=== PATIENT | male | born 1975 | race Caucasian/White ===

== ENCOUNTER → 2021-04-27 11:18 | Outpatient (CLI) | payer BC, SELFPAY ==
--- NOTE | ~2021-04-27 | US_ITS ---
US soft tissue head and neck 04/27/2021 11:38 Indication: Swollen lymph node in the left neck Procedure: High-resolution ultrasound of the left neck soft tissues in the area of palpable concern Comparison: No prior studies for comparison. Findings: There is a normal lymph node in the area of palpable concern measuring 1.2 x 0.4 x 0.6 cm w ith normal fatty hilum. No other masses or fluid collections. Impression: 1: Normal lymph node of the left neck in the area of palpable concern. Reviewed, dictated and finalized at location B. ERATURE REGULATOR Impression: 1: Normal lymph node of the left neck in the area of palpable concern.
== END ==
PROVIDERS: PCP Student in an Organized Health Care Education/Training Program; Visit Provider Student in an Organized Health Care Education/Training Program
DX: R59.9 Enlarged lymph nodes, unspecified (principal)
CPT/HCPCS: 76536

== ENCOUNTER 2021-12-20 12:32 | Outpatient (CLI) | payer BC, SELFPAY ==
--- NOTE | ~2021-12-20 | CT_ITS ---
EXAMINATION: CT diagnostic chest wo con DATE: 12/20/2021 14:22 INDICATION: Chest pain, chest pressure, dyspnea. Smoker. History of bronchitis. TECHNIQUE: Computed tomography (CT) of the chest was performed without intravenous contrast. Automate d exposure control and iterative reconstruction technique were employed. Exam dose: 429.73 mGy-cm to kaushal exam DLP. COMPARISON: 07/12/2015 2 view chest FINDINGS: Heart size is normal. Left coronary artery calcifications. No pericardial or pleural effusi on. No thoracic aortic aneurysm No hilar or mediastinal mass lesion or lymphadenopathy. Mild bilateral apical scarring. No pulmonary infiltrate or consolidation or pulmonary mass lesion is detected. Normal morphology of the adrenal glands. Included upper abdominal structures are unremarkable. Bilateral gynecomastia. No suspicious osteolytic or osteoblastic lesions. IMPRESSION: Bilateral gynecomastia Reviewed, dictated and finalized at [facility]. Reviewed, dictated and finalized at location B. IMPRESSION: Bilateral gynecomastia
--- NOTE | 2021-12-20 16:07 | WPDPFTINT ---
PFT Procedure Performed PFT Procedure Performed Spirometry with Pre/Post Bronchodilator Plethysmography (Lung Vol) Diffusing Cap (DLCO) Flow Vol Loop PFT Interpretation This is a pulmonary function test with pre and post-bronchodilator spirometry, plethysmography and diffusing capacity. The test was performed and results interpreted in accordance with the 2019 and 2005 ATS/ERS Task Force guidelines respectively using the Global Lung Function Initiative-2012 reference equations. Patient demonstrated good effort and cooperation. Reproducibility criteria were met. The quality of the pre bronchodilator spirometry maneuver was Grade A and post bronchodilator spirometry maneuver was Grade A. Findings: Spirometry: The contour the inspiratory and expiratory flow tracing are normal. The pre bronchodilator FVC is 5.94 L, 93% predicted. The pre bronchodilator FEV1 is 4.31 L, 86% predicted. The pre bronchodilator FEV1: FVC ratio is 73%. The post bronchodilator FVC is 6.18 L, representing a 4% increase. The post bronchodilator FEV1 is 4.50 L, representing a 4% increase. The post bronchodilator FEV1: FVC ratio 73%. Plethysmography: The total lung capacity is 8.27 L, 98% predicted. Functional residual capacity is 3.41 L, 78% predicted. The residual volume is 2.33 L, 99% predicted. Diffusion capacity: The diffusing capacity unadjusted for hemoglobin and carboxyhemoglobin is 34.0, 99% predicted. The diffusing capacity adjusted for alveolar volume is 4.23, 100% predicted. Impression: The spirometry is normal without evidence of an obstructive abnormality. There is no significant improvement after inhaling a single dose of albuterol. The lung volumes are normal. The diffusing capacity is normal. There are no prior studies for comparison
== END 2021-12-20 12:33 | disposition home or self-care (01) ==
LOC: ANHPFT 12:33
PROVIDERS: Visit Provider Physician Assistant
DX: R06.00 Dyspnea, unspecified (principal); F17.200 Nicotine dependence, unspecified, uncomplicated; N62 Hypertrophy of breast
CPT/HCPCS: 71250; 94060; 94726; 94729

== ENCOUNTER 2022-01-25 07:20 | Outpatient (CLI) | payer BC, SELFPAY ==
--- NOTE | 2022-02-11 17:49 | WPDHOMESLEEP ---
Sleep Study - Home Unattended Date of Study: 01/25/22 Ordering Provider: KALEIGH Rojas Interpreting Provider: Maye Conte, DO Home Sleep Study Type: Watch PAT Height: 1.98 m Weight: 108.862 kg Body Mass Index: 27.7 Neck Circumference (inches): 18 [place]: 3 Reason for Sleep Study Snoring Sleep History The patient is a 46-year-old male with insomnia, GERD and tobacco use that had a sleep study ordered by the pulmonary group for evaluation of sleep apnea. The patient occasionally awakens from sleep short of breath. He rarely awakens at night with heartburn, belching or cough. He constantly snores loud enough that others complain. He denies having trouble sleeping when he has a cold. He occasionally wakes up gasping for air throughout the night. He occasionally has breathing problems at night observed by himself or others. He constantly sweats excessively at night. He occasionally has heart palpitations or irregular heartbeats during the night. He denies falling asleep during the day and while driving. He denies sleep paralysis and cataplexy. He denies having trouble at school or work due to sleepiness. He rarely experiences vivid dreamlike scenes upon awakening or falling asleep. He denies feeling afraid of going to sleep. He rarely has nightmares. He rarely remembers his dreams. He frequently has thoughts racing his mind he denies feeling sad or depressed he frequently has anxiety denies having muscular tension he denies noticing of his body jerk. He denies kicking during night. Denies having crawling and aching feelings in his legs as well as leg pain night. He frequently grinds his teeth during sleep awakens with a morning jaw pain. He denies being bothered by pain the and denies being awakened by pain wakes feeling stiff the morning he rarely wakes up with sore or achy muscles. He denies waking up with pain in the neck, spine or other joints. He goes to bed between 9-930 p.m. on both weekdays and weekends. He is able to fall asleep within 45 minutes if he takes his Ambien. He wakes up 2-3 times throughout the night for unknown reasons. He wakes up at 4:30 a.m. on both weekdays and weekends. He typically gets 4-5 hours of sleep per night. He currently lives with his fiancee. He does not consume any caffeinated beverages within 2 hours of bedtime. He does not engage in physical exercise before bedtime. He will watch television before falling asleep. He will occasionally take naps in the afternoon or the evening but they are not refreshing. He does consume caffeinated beverages throughout the day. He occasionally drinks alcohol. He currently smokes 1 pack of cigarettes per day. He denies recreational drug use. [facility] Past Medical History Medical History Dyspnea Hypersomnia, unspecified Tobacco dependence Social History Social History Smoking packs per day: 1 Smoking cigarettes per day: 20.0 Years smoked: 27 Smoking pack-years: 27.00 Smoking status: Current every day smoker Tobacco type: cigarettes and e-cigarettes/vaping Alcohol intake: current Substance use: never Additional occupation/education comments: Dl works for the [employer], exposed to concrete dust and other aerosolized dusts and chemicals at work Medications Home Medications Medication Instructions Recorded Confirmed Type amoxicillin 500 mg capsule 500 mg PO Q12H #14 caps 02/05/22 Rx prednisone 20 mg tablet 20 mg PO DAILY #4 tabs 02/05/22 Rx tiotropium 2.5 mcg-olodaterol 2.5 2 puff inhalation DAILY 02/05/22 02/05/22 History mcg/actuation mist for inhalation (Stiolto Respimat) zolpidem 12.5 mg tablet,extended 12.5 mg PO HS 02/05/22 02/05/22 History release,multiphase Sleep Procedure The sleep study was completed using WatchPAT a technically adequate danny
[2022-02-11 17:53] VITALS: BMI 27.7
--- NOTE | 2022-08-05 12:59 | SLEEP ---
pt is following up with dentist for oral appliance
== END 2022-01-28 12:22 | disposition home or self-care (01) ==
LOC: ANHCSM 07:21
PROVIDERS: Visit Provider Physician Assistant
DX: G47.10 Hypersomnia, unspecified (principal); G47.30 Sleep apnea, unspecified; G47.33 Obstructive sleep apnea (adult) (pediatric)
CPT/HCPCS: 95800

== ENCOUNTER 2022-02-05 10:03 | Emergency (ER) | payer BC, SELFPAY ==
[2022-02-05 10:18] VITALS: BP 137/80; PULSE 83; RESP 20; TEMP 36.6; O2SAT 98
--- NOTE | 2022-02-05 10:53 | ED.GENADULT ---
HPI - General Adult General Chief complaint: Upper Respiratory Infection Stated complaint: sorethroat Source: patient Mode of arrival: ambulatory Limitations: no limitations History of Present Illness HPI narrative: This is a 46-year-old male that presents to urgent care complaining of a sore throat or swollen throat that is been going on since Friday I really felt that on Friday. Yesterday patient was showering noticed that he had bilateral left node swelling and tenderness in bilateral arm pit. Patient states he has been sick though for years off and on and they have not been able to figure it out. He has been seen by oncologist, Junk Removal Specialist, PCP, ENT Patient states he does not have any final diagnosis but the last time his lymph nodes were swollen they gave him some medication in which he does not remeber what it was and he said it slowly went away. Mr Singh is concerned as his throat is not getting any better and he would like to see what is going on Related Data Home Medications Medication Instructions Recorded Confirmed tiotropium 2.5 mcg-olodaterol 2.5 2 puff inhalation DAILY 02/05/22 02/05/22 mcg/actuation mist for inhalation (Stiolto Respimat) zolpidem 12.5 mg tablet,extended 12.5 mg PO HS 02/05/22 02/05/22 release,multiphase Allergies Allergy/AdvReac Type Severity Reaction Status Date / Time No Known Allergies Allergy Verified 02/05/22 10:31 Review of Systems Review of Systems: Swollen lymph axillary, Sore throat and wollen throat All systems reviewed & are unremarkable except as noted in HPI and below PMFSH Past Medical History Medical History Dyspnea Hypersomnia, unspecified Tobacco dependence Social History Social History Smoking packs per day: 1 Smoking cigarettes per day: 20.0 Years smoked: 27 Smoking pack-years: 27.00 Smoking status: Current every day smoker Tobacco type: cigarettes and e-cigarettes/vaping Alcohol intake: current Substance use: never Additional occupation/education comments: Dl works for the [employer], exposed to concrete dust and other aerosolized dusts and chemicals at work Exam Narrative: GENERAL:Well-appearing, well-nourished, and in no acute distress. HEAD:Normocephalic, atraumatic. EYES: PERRLA ENT: Nares clear, no rhinorrhea or epistaxis. Mucous membranes moist.Pharygeal erythema with throat swelling noted no shortness of breath at this time CHEST: Clear to auscultation. No respiratory distress. HEART: Regular rate and rhythm. Normal peripheral pulses. ABDOMEN: Soft, nontender, nondistended, normal active bowel sounds. EXTREMITIES: Normal range of motion. No edema. Bilateral axilla nodules noted. SKIN: Warm, dry, no rash. NEURO: No focal deficits. Alert and oriented x3. Course Course Level of Care: Express Care Visit Vital Signs Vital signs: Vital Signs Temperature 97.9 F 02/05/22 10:18 Pulse Rate 83 02/05/22 10:18 Respiratory Rate 20 02/05/22 10:18 Blood Pressure 137/80 02/05/22 10:18 Pulse Oximetry 98 02/05/22 10:18 Oxygen Delivery Room Air 02/05/22 10:18 Temperature 97.9 F 02/05/22 10:18 Pulse Rate 83 02/05/22 10:18 Respiratory Rate 20 02/05/22 10:18 Blood Pressure 137/80 02/05/22 10:18 Pulse Oximetry 98 02/05/22 10:18 Oxygen Delivery Room Air 02/05/22 10:18 Medical Decision Making Differential Diagnosis Differential Diagnosis: Strep throat, Allergic reaction , pharyngitis, Vital Signs Vital Signs: Vital Signs Temperature 97.9 F 02/05/22 10:18 Pulse Rate 83 02/05/22 10:18 Respiratory Rate 20 02/05/22 10:18 Blood Pressure 137/80 02/05/22 10:18 Pulse Oximetry 98 02/05/22 10:18 Oxygen Delivery Room Air 02/05/22 10:18 Temperature 97.9 F 02/05/22 10:18 Pulse Rate 83 02/05/22 10:18 Respiratory Rate 20
== END 2022-02-05 11:13 | disposition home or self-care (01) ==
PROVIDERS: Emergency Provider Nurse Practitioner Family; PCP Student in an Organized Health Care Education/Training Program
DX: J02.9 Acute pharyngitis, unspecified (principal); J06.9 Acute upper respiratory infection, unspecified; R59.9 Enlarged lymph nodes, unspecified; Z71.6 Tobacco abuse counseling; F17.219 Nicotine dependence, cigarettes, with unspecified nicotine-induced disorders; F17.290 Nicotine dependence, other tobacco product, uncomplicated
CPT/HCPCS: 87081; 87880; 99213; G0463

== ENCOUNTER 2022-03-13 08:35 | Outpatient (CLI) | payer BC, SELFPAY ==
--- NOTE | 2022-03-13 08:49 | ECHO_ITS ---
Patient Info Name: Dl Singh Age: 46 years : 1975 Gender: Male Ht: 78 in Wt: 240 lbs BSA: 2.46 m2 HR: 77 bpm BP: 123 / 70 mmHg Technical Quality: Good Exam Date: 03/13/2022 9:14 AM Exam Location: [facility] Pulmonary Patient Status: Outpatient Admit Date: 03/13/2022 Staff Ordering Physician: Pebbles Emery MD Bladder Changer: Juan Pablo Rosen RDCS Attending Provider: Pebbles Emery MD Referring Physician: Rupert FARIAS; Exam Type: CA echo doppler color flow Study Info Indications R06.00 - Dyspnea, unspecified Complete two-dimensional, color flow and Doppler transthoracic echocardiogram is performed. Summary 1. Complete two-dimensional, color flow and Doppler transthoracic echocardiogram is performed. 2. Left ventricular chamber dimension is normal. 3. Left ventricular systolic function is normal, estimated at 60-65%. 4. There is mildly increased left ventricular wall thickness. 5. The left ventricular diastolic function is grade I diastolic dysfunction. 6. E/e' 5 is not elevated. 7. There is trace tricuspid valve regurgitation. Left Ventricle E/e' 5 is not elevated. Left ventricular chamber dimension is normal. Left ventricular systolic function is normal, estimated at 60-65%. There is mildly increased left ventricular wall thickness. The left ventricular diastolic function is grade I diastolic dysfunction. Right Ventricle Right ventricular systolic function is normal and with normal TAPSE 1.9 cm. Right ventricular chamber dimension is normal. Left Atria Left atrial chamber dimension is normal. Right Atria Right atrial chamber dimension is normal. Aortic Valve The aortic valve is trileaflet. There is no aortic valve stenosis. There is no aortic valve regurgitation. Pulmonic Valve There is no pulmonic regurgitation. Mitral Valve There is no mitral valve stenosis. There is no mitral valve regurgitation. Tricuspid Valve There is trace tricuspid valve regurgitation. RVSP is not calculated due to an inadequate TR jet. Pericardium/Pleural There is no pericardial effusion. Inferior Vena Cava Normal inferior vena cava with >50% collapse upon inspiration consistent with normal right atrial pressure, 5 mmHg. Aorta The aortic root size at the sinus of Valsalva is normal. Left Ventricular Outflow Tract Name Value Normal LVOT 2D LVOT Diameter 2.4 cm LVOT Doppler LVOT Peak Gradient 5 mmHg LVOT Mean Gradient 3 mmHg LVOT VTI 19 cm LVOT VTI/AV VTI Ratio 1.1 LVOT Stroke Volume 89 ml LVOT CO 7.2 l/min LVOT CI 2.9 l/min/m2 Mitral Valve Name Value Normal MV Doppler MV Peak Gradient
== END 2022-03-13 08:36 | disposition home or self-care (01) ==
PROVIDERS: PCP Student in an Organized Health Care Education/Training Program; Visit Provider Internal Medicine Critical Care Medicine
DX: R06.00 Dyspnea, unspecified (principal)
CPT/HCPCS: 93306

== ENCOUNTER 2023-04-02 12:58 | Inpatient (IN) | payer BC, SELFPAY ==
[2023-04-02] VITALS (17 sets, daily range): BP systolic 125–173; BP diastolic 81–110; PULSE 85–97; RESP 11–28; TEMP 36.3–37.1; O2SAT 94–99; BMI 27.8
--- NOTE | 2023-04-02 | ECHO_ITS ---
Patient Info Name: Dl Singh Age: 47 years : 1975 Gender: Male Ht: 78 in Wt: 240 lbs BSA: 2.46 m2 HR: 90 bpm BP: 131 / 90 mmHg Heart Rhythm: Sinus Rhythm Technical Quality: Fair Exam Date: 04/02/2023 3:45 PM Exam Location: Echo Lab Patient Status: Inpatient Admit Date: 04/02/2023 Staff Ordering Physician: Toni Richard MD ([facility]) Attending Provider: Toni Richard MD (sharatammi) Referring Physician: Jose Manuel TERRY; Exam Type: CA echo dop color flow w con Study Info Indications I21.3 - ST elevation (STEMI) myocardial infarction of unspecified site Complete two-dimensional, color flow and Doppler transthoracic echocardiogram is performed with contrast to opacify the left ventricle and to improve the deliniation of the left ventricle endocardial borders. Contrast/Agitated Saline Contrast/Ag. Saline: Definity Amount: 2.00 ml Existing IV Access: Yes IV Access Condition: patent with no signs of infiltration Summary 1. Left ventricular chamber dimension is normal. 2. There is mildly increased left ventricular wall thickness. 3. Left ventricular systolic function is mildly reduced, estimated at 45-50%. 4. There is severe hypokinesis of the mid anteroseptum, mid anterolateral wall, mid anterior wall, apex. 5. The left ventricular diastolic function is grade I diastolic dysfunction. 6. Right ventricular systolic function is normal. 7. No significant valvular disease. Left Ventricle There is severe hypokinesis of the mid anteroseptum, mid anterolateral wall, mid anterior wall, apex. Left ventricular chamber dimension is normal. Left ventricular systolic function is mildly reduced, estimated at 45-50%. There is mildly increased left ventricular wall thickness. The left ventricular diastolic function is grade I diastolic dysfunction. Right Ventricle Right ventricular chamber dimension is normal. Right ventricular systolic function is normal. Left Atria Left atrial chamber dimension is normal. Right Atria Right atrial chamber dimension is normal. Atrial Septum Intact interatrial septum visualized by color flow imaging. Aortic Valve The aortic valve is not well visualized. There is no aortic valve stenosis. There is no aortic valve regurgitation. There is mild aortic valve calcification. Pulmonic Valve The pulmonic valve is not well visualized. Mitral Valve There is no mitral valve regurgitation. The mitral valve annulus is mildly calcified. Tricuspid Valve There is trace tricuspid valve regurgitation. Pericardium/Pleural There is no pericardial effusion. Inferior Vena Cava Normal inferior vena cava with >50% collapse upon inspiration consistent with normal right atrial pressure, 3 mmHg. Aorta The aortic root size at the sinus of Valsalva is normal. Left Ventricular Outflow Tract Name Value Normal LVOT 2D LVOT Diameter 2.05 cm LVOT Doppler LVOT Peak Gradient 5 mmHg LVOT Mean Gradient 3 mmHg LVOT VTI 17.43 cm LVOT VTI/AV VTI Ratio 0.77 LVOT Stroke Volume 57.77 ml LVO
--- NOTE | 2023-04-02 13:00 | ECG_ITS ---
Measurements Intervals [place] Rate: 89 P: 64 LA: 160 QRS: 89 QRSD: 104 T: 48 QT: 308 QTc: 377 Interpretive Statements SINUS RHYTHM ANTEROLATERAL ST ELEVATION MYOCARDIAL INFARCT- ACUTE HIGH LATERAL ST ELEVATION MYOCARDIAL INFARCT- ACUTE BASELINE WANDER- V1 ABNORMAL ECG NO PREVIOUS ECG AVAILABLE FOR COMPARISON Electronically Signed On 04-02-2023 13:05:01 PARASITOLOGIST by Tu Morgan D.O.
[2023-04-02] MEDS: ASPIRIN 81 MG CHEWABLE TABLET 324 MG PO (13:05)
[2023-04-02] MEDS: HEPARIN SODIUM 5,000 UNITS/ML VIAL 4000 UNITS IV PUSH (13:05)
[2023-04-02] MEDS: TICAGRELOR 90 MG TABLET 180 MG PO (13:05)
--- NOTE | 2023-04-02 13:11 | PC.NURSE ---
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
--- NOTE | 2023-04-02 13:21 | ED.CHESTPAIN ---
HPI - Chest Pain General Chief Complaint: Chest Pain Stated Complaint: Chest pain Time Seen by Provider: 04/02/23 13:00 History of Present Illness HPI narrative: Patient is a 39-year-old male who presents ER with chest pain. Intermittent over the last week and half for worsening over last 2 days. Suddenly worsened 1 hour prior to arrival. Center the chest. Sharp. No radiation. No diaphoresis/nausea/vomiting /shortness of breath. Triage EKG with STEMI. No history of heart disease. Related Data Home Medications Medication Instructions Recorded Confirmed zolpidem 12.5 mg tablet,extended 12.5 mg PO HS 02/05/22 02/05/22 release,multiphase Allergies Allergy/AdvReac Type Severity Reaction Status Date / Time No Known Allergies Allergy Verified 02/18/22 14:39 Review of Systems Review of Systems: All systems reviewed & are unremarkable except as noted in HPI and below Constitutional: Constitutional: Reports no additional constitutional complaints ENT: Reports system reviewed and no additional complaints, except as documented Cardiovascular: Cardiovascular: Reports chest pain, Denies rapid heart rate and Denies radiating jaw, neck or arm pain Respiratory: Respiratory: Denies cough, Denies dyspnea and Denies wheezing Gastrointestinal: Gastrointestinal: Reports no additional gastrointestinal complaints Musculoskeletal: Musculoskeletal: Reports no additional musculoskeletal complaints PMFSH Past Medical History Medical History (Updated 04/02/23 @ 13:35 by Abdi Santana MD) Dyspnea Hypersomnia, unspecified Tobacco dependence Surgical History Surgical History (Updated 04/02/23 @ 13:35 by Abdi Santana MD) No history of previous surgery Social History Social History Smoking packs per day: 1 Smoking cigarettes per day: 20.0 Years smoked: 27 Smoking pack-years: 27.00 Smoking status: Current every day smoker Tobacco type: cigarettes and e-cigarettes/vaping Alcohol intake: current Substance use: never Living arrangements: with family Occupation/Education: occupation Additional occupation/education comments: Dl works for the [employer], exposed to concrete dust and other aerosolized dusts and chemicals at work Exam Narrative: GENERAL: Uncomfortable-appearing, well-nourished, and in no acute distress. HEAD: Normocephalic, atraumatic. ENT: Mucous membranes moist. NECK: Supple. CHEST: Clear to auscultation. No respiratory distress. HEART: Regular rate and rhythm. Normal peripheral pulses. ABDOMEN: Soft, nontender, nondistended. EXTREMITIES: Normal range of motion. No edema. SKIN: Warm, dry, no rash. NEURO: Alert and oriented x3. PSYCH: Normal mood and affect. Course Course Emergency Course: Dr. Richard and cath team immediately to bedside. Patient taken to cath lab technologist after ASA/Brilinta/Heparin administration. educated about dx and tx. The hima will take her to the waiting room. Vital Signs Vital signs: Vital Signs Temperature 97.3 F L 04/02/23 13:00 Pulse Rate 89 04/02/23 13:00 Respiratory Rate 20 04/02/23 13:00 Pulse Oximetry 98 04/02/23 13:00 Oxygen Delivery Room Air 04/02/23 13:00 Temperature 97.3 F L 04/02/23 13:00 Pulse Rate 89 04/02/23 13:00 Respiratory Rate 20 04/02/23 13:00 Blood Pressure 173/110 H 04/02/23 13:10 Pulse Oximetry 98 04/02/23 13:00 Oxygen Delivery Room Air 04/02/23 13:00 MDM - Chest Pain ECG Data EKG #1: ECG completion date: 04/02/23 ECG completion time: 13:04 EKG Interpretation: normal rate (89), sinus rhythm, ST depression (III/aVR/V1), ST elevation (I/II/aVL/V2-V6), normal QRS and normal QT Discharge Plan Discharge Clinical Impression: ST elevation (STEMI) myocardial infarction Patient Disposition: Still a Patient Condition: Serious Prescriptions: No Action zolpidem
[2023-04-02 13:29] LABS: Basophils Absolute Auto 0.1 K/mm3 (0.0-0.1); Basophils Percent Auto 0.4 % (0.2-1.2); Eosinophils Percent Auto 0.1 % (0-4.4); Hematocrit 58.4 % (42.0-52.0); Immature Granulocyte Absolute 0.07 K/mm3 (0.00-0.031); Immature Granulocyte Percent A 0.6 % (0-0.5); Lymphocytes Percent Auto 12.5 % (18.3-44.2); Mean Corpuscular HGB Conc 32.5 g/dl (32-36); Mean Corpuscular Hemoglobin 30.5 pg (26-34); Mean Corpuscular Volume 93.9 fl (80-100); Mean Platelet Volume 9.8 fl (7.4-10.4); Neutrophils Absolute Auto 9.4 K/mm3 (1.3-6.7); Neutrophils Percent Auto 78.4 % (45.5-73.1); Platelet Count Result 373 k/mm3 (150-375); Red Blood Count 6.22 M/mm3 (4.6-6.20); Red Cell Distribution Width 14.3 % (11.5-14.5)
[2023-04-02 13:34] LABS: Alanine Aminotransferase 44 U/L (6-50); Albumin Level 4.3 g/dL (3.5-5.1); Alkaline Phosphatase 56 U/L (38-126); Anion Gap 11 mmol/L (8-16); Aspartate Amino Transferase 44 U/L (17-59); Bilirubin,Total 0.8 mg/dL (0.2-1.3); Blood Urea Nitrogen 10 mg/dL (9-20); Calcium 9.3 mg/dL (8.4-10.2); Carbon Dioxide 24 mmol/L (22-30); Chloride 101 mmol/L (98-107); Estimated CRCL calculation 87 ml/min; Estimated Glomerular Filt Rate > 60; Glucose 97 mg/dL (65-110); Lipase 209 U/L (23-300); Potassium 4.9 mmol/L (3.4-5.0); Sodium 136 mmol/L (137-145)
--- NOTE | 2023-04-02 13:35 | PC.NURSE ---
1304 STEMI O/H 1305 Dr Richard Notified 1305 Yesika Sent 1307 [facility] Standby
[2023-04-02 13:36] LABS: INR 0.9; Prothrombin Time 12.8 Seconds (11.1-14.7)
[2023-04-02 13:37] LABS: Partial Thromboplastin Time 27.5 SECONDS (22.3-36.8)
--- NOTE | 2023-04-02 14:35 | PM.IMHP ---
H&P: HPI History of Present Illness Date/Time: 04/02/23 14:35 Chief Complaint: Chest pain Narrative: This is a 47 year old male with obstructive sleep apnea and tobacco dependence who presented with chest pain. Had reported intermittent chest pain over the past week, but had significant chest pain around 10AM 1/2 that got better during the day, however, had recurrence and worsened this morning. EKG on arrival to ED shows sinus rhythm, and anterolateral STEMI (Q-waves already in the anterior leads). systems testing laboratory technician activated for STEMI. Patient having ongoing chest pain. Review of Systems Review of Systems: All systems reviewed & are unremarkable except as noted in HPI and below (HPI) [facility] Past Medical History Medical History Dyspnea Hypersomnia, unspecified Tobacco dependence Surgical History Surgical History No history of previous surgery Social History Social History Smoking packs per day: 1 Smoking cigarettes per day: 20.0 Years smoked: 27 Smoking pack-years: 27.00 Smoking status: Current every day smoker Tobacco type: cigarettes and e-cigarettes/vaping Alcohol intake: current Substance use: never Living arrangements: with family Occupation/Education: occupation Additional occupation/education comments: Dl works for the [employer], exposed to concrete dust and other aerosolized dusts and chemicals at work Meds Home Medications and Allergies Home Medications Medication Instructions Recorded Confirmed Type amoxicillin 500 mg capsule 500 mg PO Q12H #14 caps 02/05/22 Rx prednisone 20 mg tablet 20 mg PO DAILY #4 tabs 02/05/22 Rx zolpidem 12.5 mg tablet,extended 12.5 mg PO HS 02/05/22 02/05/22 History release,multiphase Allergies Allergy/AdvReac Type Severity Reaction Status Date / Time No Known Allergies Allergy Verified 02/18/22 14:39 Vital Signs Vital Signs - 24 hr 04/02/23 13:00 04/02/23 13:10 Temperature 36.3 C L Pulse Rate 89 Respiratory Rate 20 Blood Pressure 173/110 H Pulse Oximetry 98 Oxygen Delivery Room Air Exam Const: General: in distress moderate HENMT: Mouth: Yes dry mucous membranes Eyes: General: appearance normal, both eyes and all related structures Sclera: sclerae normal Resp: Effort & Inspection: normal respiratory effort Cardio: Rate: regular rate Rhythm: regular rhythm Skin: General skin exam: normal color Neuro: Speech: normal speech Psych: Mental Status: mental status grossly normal Affect: normal affect H&P: Results Labs Labs: Short CBC 04/02/23 Range/Units 13:09 WBC 12.0 H (4.5-10.0) K/mm3 Hgb 19.0 H (14.0-18.0) g/dL Hct 58.4 H (42.0-52.0) % Plt Count 373 (150-375) k/mm3 BMP 04/02/23 13:09 Sodium 136 L Potassium 4.9 Chloride 101 Carbon Dioxide 24 BUN 10 Creatinine 1.20 Glucose 97 Calcium 9.3 Cardiac Enzymes 04/02/23 Range/Units 13:09 Troponin I 0.320 H* (0.000-0.034) ng/mL Liver Function 04/02/23 Range/Units 13:09 Total Bilirubin 0.8 (0.2-1.3) mg/dL AST 44 (17-59) U/L ALT 44 (6-50) U/L Alkaline Phosphatase 56 (38-126) U/L Albumin 4.3 (3.5-5.1) g/dL Assessment and Plan Assessment and plan (1) ST elevation (STEMI) myocardial infarction: Code(s): I21.3 - ST elevation (STEMI) myocardial infarction of unspecified site Status: Acute Assessment and Plan: Late presentation anterolateral STEMI (Symptoms started >24 hours ago). S/p emergent cardiac cath which showed 100% occlusion of proximal LAD. S/p primary PCI with CIARA x 1 in the proximal-mid LAD. Chest pain resolved after PCI. Loaded with ASA 324mg in the ED. Continue ASA 81mg once daily indefinitely. Loaded with Brilinta 180mg in the ED. Continue with Brilinta 90mg BID for at least 1
--- NOTE | 2023-04-02 14:40 | WPDCNINT ---
Assessment and Plan Assessment and plan (1) ST elevation (STEMI) myocardial infarction: Code(s): I21.3 - ST elevation (STEMI) myocardial infarction of unspecified site Status: Acute Assessment and Plan: Patient presented with substernal chest pain that was ongoing for 1 and half week. Significantly worse 1 hour prior to arriving in the ER, EKG showed ST elevation in anterolateral leads, code STEMI was called and patient was taken the mill laborer in his found to have an occluded LAD status post CIARA x1. Patient had Angio-Seal and was transferred to the ICU for further management -continue aspirin, atorvastatin, Brilinta -cardiology managing heart medications Echocardiogram, lipid panel and hemoglobin A1c, TSH has been ordered by Cardiology (2) Tobacco dependence: Code(s): F17.200 - Nicotine dependence, unspecified, uncomplicated Status: Acute Assessment and Plan: Patient smokes 20 cigarettes per day for 25+ years -counseled patient on cessation of smoking, he did understand and is going to think about quitting (3) Dyspnea: Code(s): R06.00 - Dyspnea, unspecified Status: Acute Assessment and Plan: Patient has some dyspnea for which he takes Trelegy Ellipta at home and p.r.n. albuterol, will order home inhalers (4) GERD (gastroesophageal reflux disease): Code(s): K21.9 - Gastro-esophageal reflux disease without esophagitis Status: Acute Assessment and Plan: Patient takes is omeprazole at home, will start pantoprazole here in the hospital Plan DVT prophylaxis: Status post cardiac catheterization Stress ulcer prophylaxis: Protonix, he takes omeprazole at home Nutrition: Heart healthy diet Code Status: Full code Critical Care Time Spent: 44 minutes Discussed with cardiology -discuss with patient and his spouse along with his son at bedside. I answered all questions Due to a high probability of clinically significant, life threatening deterioration, the patient required my highest level of preparedness to intervene emergently and I personally spent this critical care time directly and personally managing the patient. This critical care time included obtaining a history; examining the patient; pulse oximetry; ordering and review of studies; arranging urgent treatment with development of a management plan; evaluation of patient's response to treatment; frequent reassessment; and discussions with other providers. It was exclusive of separately billable procedures and treating other patients and teaching time. Please see Assessment and Plan section and the rest of the note for further information on patient assessment and treatment This dictation may have been done utilizing a voice recognition system. Attempts have been made to correct errors. However, there may be uncorrected grammatical, spelling, and recognitions errors present. Chief Steward/Stewardess Consult Note Consult date: 04/02/23 Reason for consult: Chest pain, Anterolateral STEMI status post PTCA/PCI with CIARA x1 to LAD HPI: Dl Singh is a 47 year old male with past medical history of tobacco dependence, presented the ED 04/12/2023 with complains of chest pain which has been intermittently going on for 1 and half week, worsening over the last 2 days and certainly worsen 1 hour prior to arrival in the ER. Substernal chest pain, sharp, no radiation, denies any diaphoresis, shortness of breath, nausea vomiting. EKG in the ER showed anterolateral ST-elevation AR. code STEMI was called and patient was taken to the mill laborer after administering aspirin, Brilinta and heparin. Patient is was taken to the mill laborer, status post PTCA/PCI with CIARA x1 to LAD Patient seen and examined the ICU. Pleasant gentleman in no acute distress, denies any chest pain, shortness with, nausea vomiting. Smokes a packet of 20 cigarettes a day for 25+ years. Denies any illicit drug use, drinks alcohol so occasionally. He does have some lung iss
--- NOTE | 2023-04-02 14:42 | WPDMODSED ---
Moderate Sedation Note-Pt Data Patient Data Diagnosis: Anterolateral STEMI Present Complaint: Anterolateral STEMI Procedure to be performed/Plan: Primary PCI Allergies Allergy/AdvReac Type Severity Reaction Status Date / Time No Known Allergies Allergy Verified 02/18/22 14:39 Home Medications Medication Instructions Recorded Confirmed Type amoxicillin 500 mg capsule 500 mg PO Q12H #14 caps 02/05/22 Rx prednisone 20 mg tablet 20 mg PO DAILY #4 tabs 02/05/22 Rx zolpidem 12.5 mg tablet,extended 12.5 mg PO HS 02/05/22 02/05/22 History release,multiphase Current Medications: Active Medications Aspirin (Aspirin 81 Mg Enteric Tablet) 81 mg PO QAM JEANNE Atorvastatin Calcium (Atorvastatin 40 Mg Tablet) 80 mg PO DAILY JEANNE Sodium Chloride (Normal Saline Iv) 1,000 mls @ 125 mls/hr IV CONT .Q8H ONE Stop: 04/02/23 22:25 Perflutren Lipid Microsphere (Perflutren Lipid Microspheres 1.5 Ml Vial Diluted To 10 Ml Total Volume) 0 ml IV PUSH ONCE PRN; Protocol PRN Reason: adequate visualization Stop: 04/05/23 14:28 Ticagrelor (Ticagrelor 90 Mg Tablet) 90 mg PO Q12HR JEANNE Sedation/Anesthesia: No previous sedation/anesthesia problems (including family history). [facility] Past Medical History Medical History Dyspnea Hypersomnia, unspecified Tobacco dependence Surgical History Surgical History No history of previous surgery Social History Social History Smoking packs per day: 1 Smoking cigarettes per day: 20.0 Years smoked: 27 Smoking pack-years: 27.00 Smoking status: Current every day smoker Tobacco type: cigarettes and e-cigarettes/vaping Alcohol intake: current Substance use: never Living arrangements: with family Occupation/Education: occupation Additional occupation/education comments: Dl works for the [employer], exposed to concrete dust and other aerosolized dusts and chemicals at work Mod Sed Physical Exam Physical Exam Pre Procedural Exam: Normal: Lungs, Heart Rate, Heart Rhythm, Neuro Exam, Abdomen, Extremities and Skin and Variation: Appearance (Moderate distress) Hours since solid foods: 0 Hours since liquid intake: 0 Mallampati Classification: class III Internal Medicine - PN: Obj Da Vital Signs Vital Signs: Vital Signs - 24 hr 04/02/23 13:00 04/02/23 13:10 Temperature 36.3 C L Pulse Rate 89 Respiratory Rate 20 Blood Pressure 173/110 H Pulse Oximetry 98 Oxygen Delivery Room Air Meds/Results Medications: Active Medications Generic Name Dose Route Start Last Admin Trade Name Freq PRN Reason Stop Dose Admin Aspirin 81 mg 04/03/23 09:00 Aspirin 81 Mg Enteric Tablet PO QAM [facility] Atorvastatin Calcium 80 mg 04/03/23 09:00 Atorvastatin 40 Mg Tablet PO DAILY [facility] Sodium Chloride 1,000 mls @ 125 mls/hr 04/02/23 14:26 Normal Saline Iv IV CONT 04/02/23 22:25 .Q8H ONE Perflutren Lipid Microsphere 0 ml 04/02/23 14:27 Perflutren Lipid Microspheres 1.5 Ml Vial Diluted To 10 Ml Total Volume IV PUSH 04/05/23 14:28 ONCE PRN adequate visualization Protocol Ticagrelor 90 mg 04/02/23 21:00 Ticagrelor 90 Mg Tablet PO Q12HR [facility] Labs 04/02/23 13:09 04/02/23 13:09 Labs: Laboratory Results - last 24 hr 04/02/23 13:09 WBC 12.0 H RBC 6.22 H Hgb 19.0 H Hct 58.4 H MCV 93.9 MCH 30.5 MCHC 32.5 RDW 14.3 Plt Count 373 MPV 9.8 Immature Gran % (Auto) 0.6 H Neut % (Auto) 78.4 H Lymph % (Auto) 12.5 L Blount % (Auto) 8.0 Eos % (Auto) 0.1 Baso % (Auto) 0.4 Lymph # (Auto) 1.50 Blount # (Auto) 1.0 H Eos # (Auto) 0.0 Baso # (Auto) 0.1 Abs Immat Gran (auto) 0.07 H Absolute Neuts (auto) 9.4 H Absolute Nucleated RBC 0.0 Nucleated RBC % 0.0 PT 12.8 INR 0.9 APTT 27.5 Sodium 1
--- NOTE | 2023-04-02 14:55 | ADMGEN ---
This patient, Dl Singh, was admitted to Intensive Care Unit-9. Patient/family oriented to hospital policies and general routines including ID bracelet, bed and alarms, visiting hours, pain management, procedures, bathroom and other care routines, personal items, smoking policy, room service/diet, and visiting hours. Information on how to activate the Rapid Response Team has been discussed. Patient/Family are encouraged to report perceived risks to care and to ask questions if they do not understand what they are told or what they should do.
--- NOTE | 2023-04-02 15:09 | WPDCARDPROC ---
Cardiac Cath Procedure Note Date of procedure:: 04/02/23 Performing physician:: CATHETERIZATION LABORATORY REPORT Procedure Date: 04/02/2023 Instrument Checker: Toni Richard M.D., [facility]? Referring Physician: Abdi Santana M.D. ? Anesthesia: Versed and Fentanyl were ordered and given in my presence at 13:27, procedure ended at 15:19. Supervision of nurse monitored moderate sedation with Versed and Fentanyl was provided for 52 minutes. Total of Versed 3mg, Fentanyl 75mcg and Morphine 4mg IV were administered by the Brush Painter RN Sahra Reyez. Pre-op Diagnosis: Anterolateral STEMI Post-op Diagnosis: 1. Complete 100% occlusion of the proximal LAD s/p successful PCI with CIARA x 1 in the proximal-mid LAD 2. Elevated left ventricular end-diastolic pressure of 24mmHg Procedure(s): 1. Moderate sedation 2. Ultrasound guided access of the right common femoral artery 3. Coronary angiography 4. Left heart cath 5. IVUS of the LAD 6. PCI of the LAD with CIARA x 1 7. Angioseal closure of the right common femoral artery Access Site: Right common femoral artery (Radial access was not pursued as we are out of TR bands) Brief History and Clinical Indications: Patient is a 47 year old male with STEVE and tobacco dependence who is referred for emergent cardiac cath for anterolateral STEMI. All risks, benefits and alternatives to left heart catheterization with or without percutaneous coronary intervention was discussed at length with the patient. Risk of complications including but not limited to bleeding, infection, arrhythmia, stroke, worsening kidney function, blood loss, groin hematoma, limb loss, emergency coronary artery bypass grafting, and even were discussed with the patient and all questions were answered. The patient understood and wished to proceed. Time out called, patient name, date of , medical record number, allergies, procedure performed, identify Instrument Checker, patient and staff member concurred with accurate data, procedure carried on. Findings: LEFT HEART CATHETERIZATION FINDINGS: 1. Left main: The left main coronary artery is widely patent without any significant obstructive disease. 2. Left anterior descending: The LAD is 100% occluded in its proximal portion. 3. Left circumflex: The left circumflex artery and the main marginal branches have luminal irregularities without any significant obstructive angiographic disease. 4. Right coronary artery: The RCA has mild diffuse disease without any significant obstructive angiographic disease. The RCA is the dominant vessel. 5. Left ventricle: A. End-diastolic pressure 24mmHg. B. LV gram deferred. C. No significant gradient across aortic valve on catheter pullback. Description of Procedure: Patient transferred to label designer room. Prepped and draped in usual sterile fashion. 2% lidocaine in right groin area. Micropuncture needle used to access right common femoral artery with Seldinger technique under fluoroscopic and ultrasound guidance. J wire advanced, micropuncture cannula placed. Right iliofemoral angiogram performed, access confirmed and micropuncture cannula exchanged for 6-FR sheath. 5F FL 4 diagnostic catheter engaged Left Main Coronary Artery. Angiogram obtained. Angiomax used for anticoagulation. 6F CLS 3.5 guide catheter was used to intubate the LM. 0.014 Bradner coronary wire was passed in to the distal LAD. The lesion was pre-dilated with a 2.5mm x 20mm balloon inflated to high PETER. Multiple balloon inflations done. IVUS catheter advanced distal to the lesion and reference measurements obtained. A 4.0mm x 30mm Orsiro CIARA was successfully deployed into proximal-mid LAD. Follow-up angiograms showed an excellent result Coronary wire and guide-catheter were removed Pre-procedure - SHRAVAN 0 flow Post-procedure - SHRAVAN 3 flow No angiographic complications identified. 5F FR 4 diagnostic catheter engaged Right Coronary Artery. Multiple orthogonal angiogram
[2023-04-02] MEDS: SODIUM CHLORIDE 0.9% IV 1,000 ML 125 ML IV CONT (15:20)
[2023-04-02] MEDS: ATORVASTATIN 40 MG TABLET 80 MG PO (15:36)
--- NOTE | 2023-04-02 16:00 | ECG_ITS ---
Measurements Intervals [place] Rate: 89 P: 56 VA: 159 QRS: 111 QRSD: 96 T: 42 QT: 307 QTc: 373 Interpretive Statements SINUS RHYTHM POSSIBLE LEFT ATRIAL ENLARGEMENT ANTEROSEPTAL ST ELEVATION MYOCARDIAL INFARCT, RECENT HIGH LATERAL INFARCT, RECENT ABNORMAL ECG COMPARED TO ECG 04/02/2023 13:04:13 ST ELEVATION IMPROVING Electronically Signed On 04-02-2023 16:49:09 WEAVING TEACHER by Tu Morgan D.O.
[2023-04-02] MEDS: METOPROLOL SUCCINATE EXT REL 25 MG TABCR PO (16:18)
[2023-04-02 16:32] LABS: Cholesterol 203 mg/dL (0-200); HDL Direct 36 mg/dL; Triglycerides 81 mg/dL (<150)
[2023-04-02] MEDS: PERFLUTREN LIPID MICROSPHERES 1.5 ML VIAL DILUTED TO 10 ML TOTAL VOLUME IV PUSH (16:33)
[2023-04-02 16:42] LABS: LDL Cholesterol Direct 151 mg/dL
[2023-04-02 16:49] LABS: Troponin I > 80.000 ng/mL (0.000-0.034)
[2023-04-02 17:33] LABS: Hemoglobin A1C 5.1 % (<5.7)
--- NOTE | 2023-04-02 18:00 | PC.NURSE ---
Stent card and Angio-seal card sent home with , Ellen Singh
--- NOTE | 2023-04-02 19:00 | ECG_ITS ---
Measurements Intervals [place] Rate: 79 P: -2 CA: 149 QRS: 109 QRSD: 104 T: 41 QT: 323 QTc: 370 Interpretive Statements SINUS RHYTHM ANTEROSEPTAL INFARCT, RECENT HIGH LATERAL INFARCT, RECENT BASELINE ARTIFACT- I, II, AVR, AVL, V1 ABNORMAL ECG COMPARED TO ECG 04/02/2023 16:21:33 NO SIGNIFICANT CHANGES Electronically Signed On 04-03-2023 6:40:48 BRIDGE/STRUCTURE INSPECTION TEAM LEADER by Tu Morgan D.O.
[2023-04-02 19:38] LABS: Troponin I > 80.000 ng/mL (0.000-0.034)
[2023-04-02] MEDS: TICAGRELOR 90 MG TABLET PO (20:47)
[2023-04-02] MEDS: PANTOPRAZOLE 40 MG TABLET PO (20:47)
[2023-04-02] MEDS: CALCIUM CARBONATE (TUMS) 500 MG (200 MG ELEMENTAL) PO (22:44)
[2023-04-03] VITALS (14 sets, daily range): BP systolic 107–129; BP diastolic 70–90; PULSE 79–90; RESP 14–20; TEMP 36.3–37.1; O2SAT 93–99
[2023-04-03] MEDS: CALCIUM CARBONATE (TUMS) 500 MG (200 MG ELEMENTAL) PO (04:03)
[2023-04-03 04:19] LABS: Basophils Absolute Auto 0.1 K/mm3 (0.0-0.1); Basophils Percent Auto 0.4 % (0.2-1.2); Eosinophils Percent Auto 0.2 % (0-4.4); Hematocrit 54.3 % (42.0-52.0); Hemoglobin 18.6 g/dL (14.0-18.0); Immature Granulocyte Absolute 0.12 K/mm3 (0.00-0.031); Immature Granulocyte Percent A 0.7 % (0-0.5); Lymphocytes Absolute Auto 1.51 K/mm3 (0.9-3.2); Lymphocytes Percent Auto 8.4 % (18.3-44.2); Mean Corpuscular HGB Conc 34.3 g/dl (32-36); Mean Corpuscular Hemoglobin 31.4 pg (26-34); Mean Corpuscular Volume 91.6 fl (80-100); Mean Platelet Volume 9.6 fl (7.4-10.4); Monocytes Absolute Auto 1.7 K/mm3 (0.1-0.6); Monocytes Percent Auto 9.3 % (2.6-8.5); Neutrophils Absolute Auto 14.6 K/mm3 (1.3-6.7); Platelet Count Result 336 k/mm3 (150-375); Red Blood Count 5.93 M/mm3 (4.6-6.20)
[2023-04-03 04:31] LABS: Alanine Aminotransferase 110 U/L (6-50); Albumin Level 3.6 g/dL (3.5-5.1); Alkaline Phosphatase 53 U/L (38-126); Anion Gap 8 mmol/L (8-16); Aspartate Amino Transferase 717 U/L (17-59); Bilirubin,Total 1.2 mg/dL (0.2-1.3); Blood Urea Nitrogen 7 mg/dL (9-20); Calcium 8.6 mg/dL (8.4-10.2); Carbon Dioxide 22 mmol/L (22-30); Chloride 104 mmol/L (98-107); Estimated CRCL calculation 114 ml/min; Estimated Glomerular Filt Rate > 60; Glucose 109 mg/dL (65-110); Magnesium 1.7 mg/dL (1.6-2.3); Phosphorus 3.6 mg/dL (2.5-4.5); Sodium 134 mmol/L (137-145)
--- NOTE | 2023-04-03 08:50 | WPDINTPN ---
Progress Note: A&P Assessment and Plan (1) ST elevation (STEMI) myocardial infarction: Code(s): I21.3 - ST elevation (STEMI) myocardial infarction of unspecified site Status: Acute Assessment and Plan: Patient presented with substernal chest pain that was ongoing for 1 and half week. Significantly worse 1 hour prior to arriving in the ER, EKG showed ST elevation in anterolateral leads, code STEMI was called and patient was taken the laboratory cureman in his found to have an occluded LAD status post CIARA x1. Patient had Angio-Seal and was transferred to the ICU for further management -continue aspirin, atorvastatin, Brilinta -cardiology managing heart medications Echocardiogram done and report pending (2) Tobacco dependence: Code(s): F17.200 - Nicotine dependence, unspecified, uncomplicated Status: Acute Assessment and Plan: Patient smokes 20 cigarettes per day for 25+ years -counseled patient on cessation of smoking, he did understand and is going to think about quitting (3) Dyspnea: Code(s): R06.00 - Dyspnea, unspecified Status: Acute Assessment and Plan: Patient has some dyspnea for which he takes Trelegy Ellipta at home and p.r.n. albuterol, continue home inhalers (4) GERD (gastroesophageal reflux disease): Code(s): K21.9 - Gastro-esophageal reflux disease without esophagitis Status: Acute Assessment and Plan: Patient takes is omeprazole at home, continue pantoprazole here in the hospital Plan DVT prophylaxis: Status post cardiac catheterization Stress ulcer prophylaxis: Protonix, he takes omeprazole at home Nutrition: Heart healthy diet Code Status: Full code Transfer out of ICU today Subjective Date/time seen: 04/03/23 Overnight events reviewed. Afebrile Sinus rhythm on the monitor Tolerating p.o. diet Other vitals acceptable Review of Systems Review of Systems: All systems reviewed & are unremarkable except as noted in HPI and below Exam Narrative: General: Pleasant gentleman in no acute distress HEENT:? Pupils equal and reactive, sclera is clear, moist oral mucosa Neck:? Supple Respiratory:? Clear to auscultation bilaterally, adequate air entry, no wheezing Cardiac:? S1-S2 normal, regular rate and rhythm Abdomen:? Soft, nontender, nondistended, protuberant, normoactive bowel sounds Extremities:? No edema, palpable pedal pulses. Cardiac catheterization site with no evidence of ecchymosis or hematoma Neuro:? Patient is awake, alert, oriented x3, answers to questions appropriately and follows simple commands in all extremities Skin:? Warm and dry, no lesions noted, multiple tattoos noted Psych:? Normal mentation after Objective Data Vital Signs Vital Signs: Vital Signs - 24 hr 04/02/23 13:00 04/02/23 13:10 04/02/23 14:27 Temperature 36.3 C L Pulse Rate 89 90 Respiratory Rate 20 11 L Blood Pressure 173/110 H 135/87 Pulse Oximetry 98 97 Oxygen Delivery Room Air 04/02/23 14:42 04/02/23 14:57 04/02/23 15:15 Temperature 36.7 C 36.8 C 36.5 C Pulse Rate 91 91 91 Respiratory Rate 16 12 19 Blood Pressure 131/90 133/94 H 125/90 Pulse Oximetry 99 98 96 Oxygen Delivery 04/02/23 14:39 04/02/23 14:39 04/02/23 15:45 Temperature 36.6 C Pulse Rate 91 92 Respiratory Rate 23 H Blood Pressure 152/87 H Pulse Oximetry 97 Oxygen Delivery Room Air 04/02/23 16:15 04/02/23 16:18 04/02/23 16:00 Temperature 36.8 C Pulse Rate 97 95 Respiratory Rate 18 Blood Pressure 128/87 Pulse Oximetry 95 95 Oxygen Delivery Room Air 04/02/23 16:00 04/02/23 17:15 04/02/23 18:02 Temperature 37.1 C Pulse Rate 93 88 85 Respiratory Rate 21 H Blood Pressure 141/90 H Pulse Oximetry 95 Oxygen Delivery 04/02/23 18:14 04/02/23 19:13 04/02/23 20:00 Temperature 36.4 C 36.7 C 36.7 C Pulse Rate 86 86 92 Respiratory Rate 19 21 H 28 H Blood Pressure 129/83 136/99 H 138/81 Pulse Oximetry 96 98 94
[2023-04-03] MEDS: ASPIRIN 81 MG ENTERIC TABLET PO (09:01)
[2023-04-03] MEDS: ATORVASTATIN 40 MG TABLET 80 MG PO (09:01)
[2023-04-03] MEDS: METOPROLOL SUCCINATE EXT REL 25 MG TABCR PO (09:02)
[2023-04-03] MEDS: TICAGRELOR 90 MG TABLET PO ×2 (09:02→20:23)
[2023-04-03] MEDS: PANTOPRAZOLE 40 MG TABLET PO (09:02)
[2023-04-03] MEDS: FLUTICASONE/UMECLIDIN/VILANTER 100-62.5-25 MCG ELLIPTA 1 PUFF INHALATION (10:09)
--- NOTE | 2023-04-03 11:05 | PM.PNCARD ---
Progress Note: A&P Assessment and Plan (1) ST elevation (STEMI) myocardial infarction: Code(s): I21.3 - ST elevation (STEMI) myocardial infarction of unspecified site Status: Acute Assessment and Plan: Late presentation anterolateral STEMI (Symptoms started >24 hours prior to presentation.). S/p emergent cardiac cath which showed 100% occlusion of proximal LAD. S/p primary PCI with CIARA x 1 in the proximal-mid LAD. Chest pain resolved after PCI. Loaded with ASA 324mg in the ED. Continue ASA 81mg once daily indefinitely. Loaded with Brilinta 180mg in the ED. Continue with Brilinta 90mg BID for at least 1 year. High-intensity statin. Echocardiogram shows LVEF 45-50%, severe hypokinesis of the mid anteroseptum, mid anterolateral wall, mid anterior wall, apex, grade 1 diastolic dysfunction, no significant valvular disease. Started on Toprol, will continue. Given mildly reduced LVEF, will consider ACEi/ARB, however, SBP in 110s this morning, therefore, will hold off for now. Referral to cardiac rehab ordered. (2) Tobacco dependence: Code(s): F17.200 - Nicotine dependence, unspecified, uncomplicated Status: Acute Assessment and Plan: Lengthy discussion with the patient regarding adverse cardiovascular effects of tobacco use. Needs to stop smoking. (3) GERD (gastroesophageal reflux disease): Code(s): K21.9 - Gastro-esophageal reflux disease without esophagitis Status: Acute Assessment and Plan: Continue PPI (4) Elevated liver enzymes: Code(s): R74.8 - Abnormal levels of other serum enzymes Status: Acute Assessment and Plan: AST has increased to 717 from 44, and ALT to 110 from 44 overnight. Unclear reason for elevation of liver enzymes. Not in heart failure. Discussed with Pharmacy Technician Inpatient Dr. Kaiser, will repeat liver enzymes tomorrow. If they increase further then will do additional workup. If they decrease, can hold off on additional workup. Will continue his statin for now, given his STEMI, I do not want to stop his statin unless absolutely necessary. Plan Transfer out of ICU. Possible discharge tomorrow if his liver enzymes improve. Subjective Date/time seen: 04/03/23 11:05 Interval history: Reason for visit: STEMI: HPI: This is a 47 year old male with obstructive sleep apnea and tobacco dependence who presented with chest pain. Had reported intermittent chest pain over the past week, but had significant chest pain around 10AM 1/2 that got better during the day, however, had recurrence and worsened this morning. EKG on arrival to ED shows sinus rhythm, and anterolateral STEMI (Q-waves already in the anterior leads). 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 Patient having ongoing chest pain. Date of service 04/04: Doing well this morning. No symptoms. Has not had any recurrence of chest pain. Tele without arrhythmias. Review of Systems Review of Systems: All systems reviewed & are unremarkable except as noted in HPI and below (HPI) Exam Const: General: comfortable and no acute distress HENMT: Mouth: Yes moist mucous membranes Eyes: General: appearance normal, both eyes and all related structures Sclera: sclerae normal Neck: Neck: supple Resp: Effort & Inspection: normal respiratory effort Auscultation: clear to auscultation bilaterally Cardio: Rate: regular rate Rhythm: regular rhythm Heart sounds: no murmurs Skin: General skin exam: normal color Neuro: Speech: normal speech Psych: Mental Status: mental status grossly normal Affect: normal affect Objective Data Vital Signs Vital Signs: Vital Signs - 24 hr 04/02/23 13:00 04/02/23 13:10 04/02/23 14:27 Temperature 36.3 C L Pulse Rate 89 90 Respiratory Rate 20 11 L Blood Pressure 173/110 H 135/87 Pulse Oximetry 98 97 Oxygen Delivery Room Air 04/02/23 14:42 04/02/23 14:57 04/02/23 15:15 Temperature 36.7 C 36.8 C 36.5 C Pulse Rate 91 91 91 Respiratory Rate 16 12 19 Blood Pressure 13
--- NOTE | 2023-04-03 14:51 | PCCPR ---
Electronic referral for cardiac rehab received. Visited patient- Explained program and gave program flyer.
[2023-04-03] MEDS: ZOLPIDEM TARTRATE (*CRX) 5 MG TABLET 10 MG PO (22:14)
[2023-04-04] VITALS (8 sets, daily range): BP systolic 108; BP diastolic 72; PULSE 73–91; RESP 18–27; TEMP 36.4–36.6; O2SAT 100
[2023-04-04 06:15] LABS: Basophils Absolute Auto 0.1 K/mm3 (0.0-0.1); Basophils Percent Auto 0.9 % (0.2-1.2); Eosinophils Absolute Auto 0.1 K/mm3 (0-0.3); Eosinophils Percent Auto 0.8 % (0-4.4); Hematocrit 56.4 % (42.0-52.0); Hemoglobin 18.6 g/dL (14.0-18.0); Immature Granulocyte Percent A 0.9 % (0-0.5); Lymphocytes Absolute Auto 1.32 K/mm3 (0.9-3.2); Mean Corpuscular Hemoglobin 30.6 pg (26-34); Mean Corpuscular Volume 92.8 fl (80-100); Mean Platelet Volume 9.6 fl (7.4-10.4); Monocytes Absolute Auto 1.5 K/mm3 (0.1-0.6); Monocytes Percent Auto 13.4 % (2.6-8.5); Neutrophils Absolute Auto 7.9 K/mm3 (1.3-6.7); Platelet Count Result 310 k/mm3 (150-375); Red Blood Count 6.08 M/mm3 (4.6-6.20); Red Cell Distribution Width 14.3 % (11.5-14.5)
[2023-04-04 06:26] LABS: Alanine Aminotransferase 74 U/L (6-50); Albumin Level 3.4 g/dL (3.5-5.1); Alkaline Phosphatase 50 U/L (38-126); Anion Gap 5 mmol/L (8-16); Aspartate Amino Transferase 165 U/L (17-59); Blood Urea Nitrogen 11 mg/dL (9-20); Calcium 8.3 mg/dL (8.4-10.2); Carbon Dioxide 24 mmol/L (22-30); Chloride 105 mmol/L (98-107); Estimated CRCL calculation 94 ml/min; Estimated Glomerular Filt Rate > 60; Glucose 94 mg/dL (65-110); Potassium 4.2 mmol/L (3.4-5.0); Sodium 134 mmol/L (137-145)
[2023-04-04] MEDS: METOPROLOL SUCCINATE EXT REL 25 MG TABCR PO (08:25)
[2023-04-04] MEDS: PANTOPRAZOLE 40 MG TABLET PO (08:25)
[2023-04-04] MEDS: ASPIRIN 81 MG ENTERIC TABLET PO (08:25)
[2023-04-04] MEDS: TICAGRELOR 90 MG TABLET PO (08:25)
[2023-04-04] MEDS: ATORVASTATIN 40 MG TABLET 80 MG PO (08:26)
[2023-04-04] MEDS: FLUTICASONE/UMECLIDIN/VILANTER 100-62.5-25 MCG ELLIPTA 1 PUFF INHALATION (08:42)
--- NOTE | 2023-04-04 10:44 | PM.DS ---
DS: Admitting Diagnosis Discharge Date 04/04/23 Admitting Diagnosis Chest pain DS: Discharge Diagnosis Discharge Diagnosis (1) ST elevation (STEMI) myocardial infarction: Code(s): I21.3 - ST elevation (STEMI) myocardial infarction of unspecified site Status: Acute Assessment and Plan: Late presentation anterolateral STEMI (Symptoms started >24 hours prior to presentation.). S/p emergent cardiac cath which showed 100% occlusion of proximal LAD. S/p primary PCI with CIARA x 1 in the proximal-mid LAD. Chest pain resolved after PCI. Continue DAPT with ASA 81mg once daily indefinitely and Brilinta 90mg b.i.d. for at least 1 year High-intensity statin. Echocardiogram shows LVEF 45-50%, severe hypokinesis of the mid anteroseptum, mid anterolateral wall, mid anterior wall, apex, grade 1 diastolic dysfunction, no significant valvular disease. Started on Toprol, will continue. Given mildly reduced LVEF, will consider ACEi/ARB, however, SBP in 110s this morning, therefore, will hold off for now. Referral to cardiac rehab ordered. OK for discharge today. (2) Tobacco dependence: Code(s): F17.200 - Nicotine dependence, unspecified, uncomplicated Status: Acute Assessment and Plan: Immediate smoking cessation recommended. Will send script for nicotine patches. (3) GERD (gastroesophageal reflux disease): Code(s): K21.9 - Gastro-esophageal reflux disease without esophagitis Status: Acute Assessment and Plan: Continue PPI (4) Elevated liver enzymes: Code(s): R74.8 - Abnormal levels of other serum enzymes Status: Acute Assessment and Plan: Will continue his statin for now, given his STEMI, I do not want to stop his statin unless absolutely necessary. Plan Transfer out of ICU. Possible discharge tomorrow if his liver enzymes improve. DS: Summary Hospital Course Hospital Course: Late presentation anterolateral STEMI (Symptoms started >24 hours prior to presentation.). S/p emergent cardiac cath which showed 100% occlusion of proximal LAD. S/p primary PCI with CIARA x 1 in the proximal-mid LAD. Chest pain resolved after PCI. No complications during hospital stay. Time Spent with Patient Time attestation: Total time spent providing and/or coordinating discharge services: Exam Const: General: comfortable, no acute distress and in distress moderate HENMT: Mouth: Yes moist mucous membranes and Yes dry mucous membranes Eyes: General: appearance normal, both eyes and all related structures Sclera: sclerae normal Neck: Neck: supple Resp: Effort & Inspection: normal respiratory effort Auscultation: clear to auscultation bilaterally Cardio: Rate: regular rate Rhythm: regular rhythm Heart sounds: no murmurs Skin: General skin exam: normal color Neuro: Speech: normal speech Psych: Mental Status: mental status grossly normal Affect: normal affect DS: Data Data Completed and Pending Labs on day of discharge: Labs from last 24 hours 04/04/23 06:06 WBC 11.0 H RBC 6.08 Hgb 18.6 H Hct 56.4 H MCV 92.8 MCH 30.6 MCHC 33.0 RDW 14.3 Plt Count 310 MPV 9.6 Immature Gran % (Auto) 0.9 H Neut % (Auto) 72.0 Lymph % (Auto) 12.0 L Walsh % (Auto) 13.4 H Eos % (Auto) 0.8 Baso % (Auto) 0.9 Lymph # (Auto) 1.32 Walsh # (Auto) 1.5 H Eos # (Auto) 0.1 Baso # (Auto) 0.1 Abs Immat Gran (auto) 0.10 H Absolute Neuts (auto) 7.9 H Absolute Nucleated RBC 0.0 Nucleated RBC % 0.0 Sodium 134 L Potassium 4.2 Chloride 105 Carbon Dioxide 24 Anion Gap 5 L BUN 11 Creatinine 1.10 Estim Creat Clear Calc 94 Estimated GFR > 60 Glucose 94 Calcium 8.3 L Total Bilirubin 1.0 AST 165 H ALT 74 H Alkaline Phosphatase 50 Total Protein 7.0 Albumin 3.4 L Discharge Plan Discharge Attending physician on discharge: Suleman Elkins Consulting providers: Lalit Boles; Tu Morgan; Soy Kaiser Discharging Clinician: Zay Hernandez
--- NOTE | 2023-04-22 13:49 | IVDEFINITY ---
Prior to administration of IV Definity the patient was educated on the risks and benefits of the imaging enhancing agent including potential adverse side effects. The patient verbalized understanding. Allergies were verified. No exclusion criteria were identified and at least one of the following inclusion criteria were met: 1) physician request, 2) patient technically difficult to image (per the [place] [employer] guidelines of two or more segments not discernable within the apical view), or 3) questionable left ventricular function. ?
== END 2023-04-04 13:54 | disposition home or self-care (01) | DRG 322 ==
LOC: ANHED 13:30 → ANHICU 13:50
PROVIDERS: Internal Medicine; Admitting Provider Internal Medicine; Emergency Provider Emergency Medicine; PCP Student in an Organized Health Care Education/Training Program; Visit Provider Nurse Practitioner
PROC: 4A023N7 Measurement of Cardiac Sampling and Pressure, Left Heart, Percutaneous Approach (ICD-10-PCS; CPT 93452; principal; 2023-04-02 13:30)
PROC: 4A023N7 Measurement of Cardiac Sampling and Pressure, Left Heart, Percutaneous Approach (ICD-10-PCS; 2023-04-02 13:30)
PROC: 4A023N7 Measurement of Cardiac Sampling and Pressure, Left Heart, Percutaneous Approach (ICD-10-PCS; 2023-04-02 13:30)
PROC: 4A023N7 Measurement of Cardiac Sampling and Pressure, Left Heart, Percutaneous Approach (ICD-10-PCS; 2023-04-02 13:30)
DX: I21.09 ST elevation (STEMI) myocardial infarction involving other coronary artery of anterior wall (principal); R74.8 Abnormal levels of other serum enzymes; F17.210 Nicotine dependence, cigarettes, uncomplicated; G47.33 Obstructive sleep apnea (adult) (pediatric); K21.9 Gastro-esophageal reflux disease without esophagitis; R06.00 Dyspnea, unspecified
CPT/HCPCS: 36415; 80053; 80061; 83036; 83690; 83735; 84100; 84443; 84484; 85025; 85610; 85730; 92978; 93005; 93458; 94640; 96374; 99285; A9270; C1725; C1753; C1760; C1769; C1874; C1887; C1894; C8929; C9606; G0269; J0583; J1327; J1644; J2250; J2270; J3010; J7030; J7040; Q9957